=== PATIENT | female | born 1990 | race African-American/Black ===

== ENCOUNTER 2019-09-22 20:59 | Emergency (ER) | payer OTHER, MEDICAID ==
[~2019-09-22] VITALS: Ht 157.5 cm; Wt 61.2 kg
--- NOTE | 2019-09-22 21:10 | NUR ---
ED Nurse Note: Pt ambulated to ED from home c/o lower L sided sharp pain starting today. Pt took an at home regnancy test several days ago and was positive. Pt denies bleeding,fever N/V. 01/28 pain. VSS, PT A&Ox4
--- NOTE | 2019-09-22 21:17 | Emergency Room Report ---
History of Present Illness General Chief Complaint: Complications Source: Patient (Vijay Smith ) Present Illness HPI Patient presents with complaints of left mid abdominal pain reports that the pain came on about 3 hours ago Sharp Reports that she is her youngest child is 3 years old Denies any lower abdominal pain denies any dysuria frequency Denies any fall or trauma Patient's last menstrual cycle was September 11 She has not had any work-up for this and Essentially realize she was several days ago after a home test Denies any vaginal bleeding or discharge Denies any chest pain or shortness of breath (Vijay Smith DO) Allergies: Coded Allergies: No Known Allergies (Unverified , 09/22/19) COVID-19 Screening Contact w/high risk pt: No Recent Travel to affected area: No Experienced COVID-19 symptoms?: No (Vijay Smith DO) Patient History Past Medical History: see triage record Last Menstrual Period: 08-12-19 Now: Yes : 3 Para: 2 Reviewed Nursing Documentation: PMH: Agreed; PSxH: Agreed (Vijay Smith DO) Nursing Documentation-PMH Past Medical History: No Stated History (Vijay Smith DO) Review of Systems All Other Systems: negative except mentioned in HPI (Vijay Smith DO) Physical Exam Vital Signs Date Time Temp Pulse Resp B/P (MAP) Pulse Ox O2 Delivery O2 Flow Rate FiO2 09/22/19 21:06 98.1 83 18 119/75 (90) 98 Room Air Sp02 EP Interpretation: reviewed, normal General Appearance: well appearing, no apparent distress Head: normocephalic, atraumatic Eyes: bilateral eye PERRL, bilateral eye EOMI ENT: hearing grossly normal, normal pharynx, TMs + canals normal, uvula midline Neck: full range of motion, supple, no meningismus, no bony tend Respiratory: lungs clear, normal breath sounds, no rhonchi, no respiratory distress, no retraction, no accessory muscle use Cardiovascular #1: normal peripheral pulses, regular rate, rhythm, no edema, no gallop, no JVD, no murmur Gastrointestinal: normal bowel sounds, non tender - On palpation patient however points to the left mid abdominal area for discomfort, soft, no mass, no organomegaly, non-distended, no guarding, no hernia, no pulsatile mass, no rebound Genitourinary: no CVA tenderness Musculoskeletal: normal inspection Neurologic: motor strength/tone normal, director wholesale III-XII nml as tested, oriented x3 , sensory intact, responsive Psychiatric: mood/affect normal Skin: no rash Lymphatic: normal inspection, no adenopathy (Vijay Smith DO) Medical Decision Making Diagnostic Impression: Primary Impression: Abdominal pain during in first trimester Additional Impression: Cystitis ER Course With the patient's history and examination, multiple differentials considered, including but not limited to , ectopic , ovarian torsion, gastritis, cholecystitis, pancreatitis, appendicitis Patient has not had any work-up for this therefore Quantitative beta-hCG is ordered ultrasound is ordered Patient does not have any vaginal bleeding therefore type and screen has been held And patient is pending further work-up (Vijay Smith DO) ER Course Assumed care of the patient approximately 10 PM from previous provider. Briefly, this is a 28-year-old G4, P3 female with a reported positive test at home as well as abdominal cramping and dysuria with urinary frequency. At the time of signout we are waiting resolution of lab work and abdominal ultrasound. Labs are returned within normal limits.hCG elevated at 3900. Urinalysis shows 2+ leukocyte esterase with RBCs but few bacteria and few white cells. Given the inflammatory markers and her recent dysuria and frequency will treat with Keflex for presumed urinary tract infection during . Ultrasound shows a likely however unable to confirm due to the early nature of the . Instructed the patient to follow-up immediately with her RN DELIVERY to discuss these results and to schedule repeat ultrasound to confirm . No evidence of torsion or other intrapelvic pathology. Patient is well-appearing will start on prenatals, Keflex, Zofran. Instructed to return with new or worsening symptoms. She understands and agrees with this treatment plan. Laboratory Tests Test 09/22/19 21:14 09/22/19 21:30 Urine Color Pale yellow Urine Appearance Clear Urine pH 5 (4.5-8.0) Urine Specific Brady 1.025 (1.005-1.035) Urine Protein Negative (NEGATIVE) Urine Glucose (UA) Negative (NEGATIVE) Urine Ketones 3+ (NEGATIVE) H Urine Blood 2+ (NEGATIVE) H Urine Nitrite Negative (NEGATIVE) Urine Bilirubin Negative (NEGATIVE) Urine Urobilinogen Normal MG/DL (0.0-1.0) Urine Leukocyte Esterase 2+ (NEGATIVE) H Urine RBC 5-10 /HPF (0 - 2) H Urine WBC 2-4 /HPF (0 - 2) Urine Squamous Epithelial Cells Few /LPF (NONE/OCC) Urine Bacteria Few /HPF (NONE) White Blood Count 15.9 K/UL (4.8-10.8) H Red Blood Count 4.36 M/UL (4.20-5.40) Hemoglobin 13.2 G/DL (12.0-16.0) Hematocrit 40.6 % (37.0-47.0) Mean Corpuscular Volume 93 FL (80-99) Mean Corpuscular Hemoglobin 30.2 PG (27.0-31.0) Mean Corpuscular Hemoglobin Concent 32.5 G/DL (32.0-36.0) Red Cell Distribution Width 11.6 % (11.6-14.8) Platelet Count 289 K/UL (150-450) Mean Platelet Volume 7.3 FL (6.5-10.1) Neutrophils (%) (Auto) 73.0 % (45.0-75.0) Lymphocytes (%) (Auto) 20.2 % (20.0-45.0) Monocytes (%) (Auto) 5.4 % (1.0-10.0) Eosinophils (%) (Auto) 0.3 % (0.0-3.0) Basophils (%) (Auto) 1.0 % (0.0-2.0) Sodium Level 142 MMOL/L (136-145) Potassium Level 3.4 MMOL/L (3.5-5.1) L Chloride Level 106 MMOL/L (98-107) Carbon Dioxide Level 22 MMOL/L (21-32) Anion Gap 14 mmol/L (5-15) Blood Urea Nitrogen 10 mg/dL (7-18) Creatinine 0.7 MG/DL (0.55-1.30) Estimated Glomerular Filtration Rate > 60 mL/min (>60) Glucose Level 86 MG/DL (74-106) Calcium Level 9.2 MG/DL (8.5-10.1) Total Bilirubin 0.3 MG/DL (0.2-1.0) Aspartate Amino Transferase (AST) 16 U/L (15-37) Alanine Aminotransferase (ALT) 20 U/L (12-78) Alkaline Phosphatase 76 U/L (46-116) Total Protein 7.3 G/DL (6.4-8.2) Albumin 4.1 G/DL (3.4-5.0) Globulin 3.2 g/dL Albumin/Globulin Ratio 1.3 (1.0-2.7) Lipase 97 U/L (73-393) Human Chorionic Gonadotropin, Quant 3942 mIU/mL (1-6) H (Price Rios MD) CT/MRI/US Diagnostic Results CT/MRI/US Diagnostic Results : Impression Final Report EXAM: US First Trimester, Transabdominal US , Transvaginal CLINICAL HISTORY: PAIN TECHNIQUE: Real-time transabdominal and transvaginal obstetrical ultrasound of the maternal pelvis and a first trimester with image documentation. Transvaginal imaging was used for better evaluation of the fetus and adnexa. COMPARISON: No relevant prior studies available. FINDINGS: Gestation: Small fluid collection or potentially early intrauterine gestational sac. No internal components are present to confirm an IUP at this time. Placenta/amniotic fluid: Cannot be adequately evaluated due to the early gestational age. Uterus/cervix: Endometrium measures 14 mm. Ovaries: Right ovary measures 3.5 x 1.7 cm. No torsion. Left ovary measures 1.9 x 3.4 cm. No lesion or torsion. Probable collapsed right corpus luteum cyst but appearance is nonspecific. Free fluid: Small amount of fluid in the pelvis. IMPRESSION: Small fluid collection or potentially early intrauterine gestational sac. No internal components are present to confirm an IUP at this time. Findings are nonspecific and may be seen in the setting of early IUP, SAB or occult ectopic. Correlation and follow-up needed. Radiologist: Rahel Deleon M.D. Electronically Signed: 09/23/19 00:14 Study ready at 23:45 and initial results transmitted at 00:14 (Price Rios MD) Last Vital Signs Date Time Temp Pulse Resp B/P (MAP) Pulse Ox O2 Delivery O2 Flow Rate FiO2 09/22/19 21:06 98.1 83 18 119/75 (90) 98 Room Air (Vijay Smith DO) Disposition: HOME, SELF-CARE Condition: Stable Scripts #103/Iron Fumarate/Fa ( TABLET) 1 Each Tablet 1 EACH PO DAILY, #30 TAB Prov: Price Rios MD 09/22/19 Cephalexin* (KEFLEX*) 500 Mg Capsule 500 MG ORAL EVERY 12 HOURS, #14 CAP 0 Refills Prov: Price Rios MD 09/22/19 Ondansetron Odt* (ZOFRAN ODT*) 4 Mg Tab.rapdis 4 MG BC EVERY 6 HOURS PRN for Nausea & Vomiting, #10 TAB 0 Refills Prov: Price Rios MD 09/22/19 Vijay Smith DO September 22, 2019 21:17 Price Rios MD September 22, 2019 23:32
[2019-09-22 21:28] LABS: APPEARANCE,URINE CLEAR; BILIRUBIN, URINE NEGATIVE (NEGATIVE); COLOR,URINE PALE YELLOW; GLUCOSE, URINE (UA) NEGATIVE (NEGATIVE); KETONES,URINE 3+ (NEGATIVE); LEUKOCYTE ESTERASE ,URINE 2+ (NEGATIVE); NITRITE,URINE NEGATIVE (NEGATIVE); PH,URINE 5 (4.5-8.0); PROTEIN,URINE NEGATIVE (NEGATIVE); UROBILINOGEN,URINE NORMAL MG/DL (0.0-1.0)
[2019-09-22 21:37] LABS: EOSINOPHILS % (AUTO) 0.3 % (0.0-3.0); HEMATOCRIT 40.6 % (37.0-47.0); HEMOGLOBIN 13.2 G/DL (12.0-16.0); LYMPHOCYTES % (AUTO) 20.2 % (20.0-45.0); MEAN CORPUSCULAR VOLUME 93 FL (80-99); MONOCYTES % (AUTO) 5.4 % (1.0-10.0); PLATELET COUNT 289 K/UL (150-450); RED BLOOD COUNT 4.36 M/UL (4.20-5.40); RED CELL DISTRIBUTION WIDTH 11.6 % (11.6-14.8); WHITE BLOOD COUNT 15.9 K/UL (4.8-10.8)
[2019-09-22 21:46] LABS: ANION GAP 14 mmol/L (5-15); BLOOD UREA NITROGEN 10 mg/dL (7-18); CALCIUM 9.2 MG/DL (8.5-10.1); CARBON DIOXIDE 22 MMOL/L (21-32); CHLORIDE 106 MMOL/L (98-107); CREATININE 0.7 MG/DL (0.55-1.30); POTASSIUM 3.4 MMOL/L (3.5-5.1); SODIUM 142 MMOL/L (136-145)
[2019-09-22 21:50] LABS: ALANINE AMINOTRANSFERASE 20 U/L (12-78); ALBUMIN 4.1 G/DL (3.4-5.0); ALBUMIN/GLOBULIN RATIO 1.3 (1.0-2.7); ALKALINE PHOSPHATASE 76 U/L (46-116); ASPARTATE AMINO TRANSFERASE 16 U/L (15-37); BILIRUBIN,TOTAL 0.3 MG/DL (0.2-1.0)
--- NOTE | 2019-09-22 22:56 | NUR ---
ED Nurse Note: US at bedside
[2019-09-22] MEDS ORDERED: ONDANSETRON ODT4 MG BC (23:15)
[2019-09-22] MEDS ORDERED: CEPHALEXIN500 MG ORAL (23:15)
--- NOTE | 2019-09-23 00:15 | Diagnostic Imaging Report ---
EXAM: US First Trimester, Transabdominal US , Transvaginal CLINICAL HISTORY: PAIN TECHNIQUE: Real-time transabdominal and transvaginal obstetrical ultrasound of the maternal pelvis and a first trimester with image documentation. Transvaginal imaging was used for better evaluation of the fetus and adnexa. COMPARISON: No relevant prior studies available. FINDINGS: Gestation: Small fluid collection or potentially early intrauterine gestational sac. No internal components are present to confirm an IUP at this time. Placenta/amniotic fluid: Cannot be adequately evaluated due to the early gestational age. Uterus/cervix: Endometrium measures 14 mm. Ovaries: Right ovary measures 3.5 x 1.7 cm. No torsion. Left ovary measures 1.9 x 3.4 cm. No lesion or torsion. Probable collapsed right corpus luteum cyst but appearance is nonspecific. Free fluid: Small amount of fluid in the pelvis. IMPRESSION: Small fluid collection or potentially early intrauterine gestational sac. No internal components are present to confirm an IUP at this time. Findings are nonspecific and may be seen in the setting of early IUP, SAB or occult ectopic. Correlation and follow-up needed.
[2019-09-23 00:35] VITALS: BP 119/75
--- NOTE | 2019-09-23 00:35 | NUR ---
ER DISCHARGE NOTE: Patient is cleared to be discharged per ERMD, pt is aox4, on room air, with stable vital signs. pt was given dc and prescription instructions, pt was able to verbalize understanding, pt id band and iv site removed without complications. pt is able to ambulate with steady gait. pt took all belongings.
== END 2019-09-23 00:35 | disposition home or self-care (01) ==
LOC: EMR 21:19
DX: R10.9 Unspecified abdominal pain (principal); N30.90 Cystitis, unspecified without hematuria
CPT/HCPCS: 36415; 76801; 76817; 80053; 81003; 83690; 84702; 85025; 96360; 99284; J7030